=== PATIENT | female | born 2000 | race Caucasian/White ===

== ENCOUNTER 2022-10-03 09:35 | Emergency (ER) | payer OTHER, SELFPAY ==
[2022-10-03 09:55] VITALS: BP 114/65; PULSE 68; RESP 16; TEMP 36.3; O2SAT 100
--- NOTE | 2022-10-03 10:23 | ED.FEMALEGU ---
HPI - Female Genitourinary General Chief complaint: Urogenital-Female Stated complaint: uti symptoms Time Seen by Provider: 10/03/22 10:20 Source: patient and RN notes reviewed Mode of arrival: ambulatory Limitations: no limitations History of Present Illness HPI Narrative: Patient presents today complaining of waking up this morning dysuria, frequency, and urgency. Denies abdominal pain, back pain, or any additional symptoms. She has tried no [id number] treatment prior to arrival. LMP was 2 weeks ago. No recent antibiotic use. Related Data Home Medications Medication Instructions Recorded Confirmed norethindrone 1 mg-ethinyl 1 tablet PO DAILY 10/03/22 10/03/22 estradiol 20 mcg (21)-iron 75 mg (7) tablet ([place] 05/25 (28)) Allergies Allergy/AdvReac Type Severity Reaction Status Date / Time No Known Allergies Allergy Verified 10/03/22 10:01 Review of Systems Review of Systems: CONSTITUTIONAL: Denies body aches, fever, chills, or sweats. EYES: Denies visual changes, redness, or discharge. ENT: Denies rhinorrhea, congestion, sore throat, or otalgia. CARDIOVASCULAR: Denies chest pain, palpitations, or edema. RESPIRATORY: Denies cough or dyspnea. GASTROINTESTINAL: Denies abdominal pain, nausea, vomiting, or diarrhea. GENITOURINARY:+ dysuria, frequency, urgency SKIN: Denies rash, itching, or wounds. MUSCULOSKELETAL: Denies back pain, joint pain, or myalgia. NEUROLOGIC: Denies headache, numbness, tingling, or weakness. PSYCH: Denies depression or anxiety. PMFSH Comments At time of signature, I have reviewed and agree with nursing past medical, surgical, social and family history unless otherwise noted. Please see nursing chart for further information. There is no relevant family history pertinent to the presenting complaint Exam Narrative: GENERAL: Well-appearing, well-nourished, and in no acute distress. HEAD: Normocephalic, atraumatic. EYES: EOMI. No redness or drainage. Conjunctivae normal. ENT: Mucous membranes pink and moist. NECK: Normal AROM. CHEST: No respiratory distress. Clear to auscultation. HEART: Regular rate and rhythm. No murmur appreciated. Normal peripheral pulses. ABDOMEN: Soft, nontender, nondistended, normal active bowel sounds.-CVAT EXTREMITIES: Normal range of motion. No edema. SKIN: Warm, dry, no rash. Capillary refill normal. Normal skin turgor. NEURO: No focal deficits. Alert and oriented x3. Gait steady. PSYCH: Normal affect. No signs of depression or anxiety. Course Course Level of Care: Express Care Visit Vital Signs Vital signs: Vital Signs Temperature 97.4 F L 10/03/22 09:55 Pulse Rate 68 10/03/22 09:55 Respiratory Rate 16 10/03/22 09:55 Blood Pressure 114/65 10/03/22 09:55 Pulse Oximetry 100 10/03/22 09:55 Oxygen Delivery Room Air 10/03/22 09:55 Temperature 97.4 F L 10/03/22 09:55 Pulse Rate 68 10/03/22 09:55 Respiratory Rate 16 10/03/22 09:55 Blood Pressure 114/65 10/03/22 09:55 Pulse Oximetry 100 10/03/22 09:55 Oxygen Delivery Room Air 10/03/22 09:55 Reviewed MDM - Female Genitourinary MDM Narrative Medical decision making narrative: Symptoms and UA consistent with UTI. Prescription for Bactrim sent to pharmacy. Anticipatory guidance given. Differential Diagnosis Differential diagnosis: Likely urinary tract infection, vaginitis, cystitis and other (Pyelonephritis, interstitial cystitis) Lab Data Attestation: I reviewed the patient's lab results. Labs: Urine Glucose Negative Reference Range: Negative Urine Bilirubin Negative Reference Range: Negative Urine Ketone Negative Reference Range: Negative Urine Specific [place] 1.015 Refere
== END 2022-10-03 10:36 | disposition home or self-care (01) ==
PROVIDERS: Emergency Provider Nurse Practitioner
DX: N30.01 Acute cystitis with hematuria (principal)
CPT/HCPCS: 81003; 87086; 87088; 99203; G0463